=== PATIENT | male | born 1960 | race Caucasian/White ===

== ENCOUNTER 2017-08-05 05:55 | Observation (INO) | payer BC ==
[~2017-08-05] VITALS: Ht 175.3 cm; Wt 82.9 kg
[2017-08-05] MEDS ORDERED: BUPIVACAINE/PF 0.25% ONE (06:52)
[2017-08-05] MEDS ORDERED: EPINEPHRINE 1 MG/ML, 1ML ONE (06:53)
[2017-08-05] MEDS ORDERED: LIDOCAINE/PF 0.5% ,50ML ONE (06:53)
[2017-08-05] MEDS ORDERED: THROMBIN 5,000 UNIT VIAL TP ONE (06:53)
[2017-08-05] MEDS ORDERED: VANCOMYCIN 1,000 MG ONE (06:53)
[2017-08-05] MEDS ORDERED: OXYC20TA2 PO (06:57)
[2017-08-05] MEDS ORDERED: FLUT1AER INH (06:57)
[2017-08-05] MEDS ORDERED: LISI1TAB5 PO (06:57)
[2017-08-05] MEDS ORDERED: ALBU8.5H8 INH (06:57)
[2017-08-05] MEDS ORDERED: LACTATED RINGERS 1,000 ML IV SCH (06:57)
[2017-08-05 06:58] VITALS: BP 145/95
[2017-08-05] MEDS ORDERED: FENTANYL PF 250 MCG/5ML ONE (07:02)
[2017-08-05] MEDS ORDERED: MIDAZOLAM 1 MG/ML, 2ML ONE (07:02)
[2017-08-05] MEDS ORDERED: REMIFENTANIL 2 MG ONE (07:03)
[2017-08-05] MEDS ORDERED: ROCURONIUM 10 MG/ML,10ML ONE (07:04)
[2017-08-05] MEDS ORDERED: LIDOCAINE-MPF 2% ,5ML ONE (07:05)
[2017-08-05] MEDS ORDERED: PROPOFOL 10 MG/ML, 20ML ONE (07:05)
[2017-08-05] MEDS ORDERED: PHENYLEPHRINE 10 MG/ML ONE (07:06)
[2017-08-05] MEDS ORDERED: CEFAZOLIN 1,000 MG ONE ×2 (07:07)
[2017-08-05] MEDS ORDERED: SODIUM CHLORIDE 0.9% PF 10ML ONE (07:07)
[2017-08-05] MEDS ORDERED: LIDOCAINE 1%, 2ML ONE (07:09)
[2017-08-05] MEDS ORDERED: ONDANSETRON 2MG/ML, 2ML ONE ×2 (07:09)
[2017-08-05] MEDS ORDERED: DEXAMETHASONE 4 MG/ML, 1ML ONE ×2 (07:09)
[2017-08-05] MEDS ORDERED: LIDOCAINE 1%, 2ML SQ PRN (07:30)
[2017-08-05] MEDS ORDERED: KETAMINE 10 MG/ML, 20ML ONE (07:59)
[2017-08-05] MEDS ORDERED: HYDROmorphone 2 MG/ML, 1ML ONE ×3 (08:14→11:01)
[2017-08-05] MEDS ORDERED: DEXMEDETOMIDINE 200 MCG/2 ML ONE (08:16)
[2017-08-05] MEDS ORDERED: VANCOMYCIN 500 MG ONE (09:05)
[2017-08-05] MEDS ORDERED: VANCOMYCIN 500 MG IVPB ONE (09:08)
[2017-08-05] MEDS ORDERED: hydrALAzine 20 MG/ML, 1ML IV PRN (10:00)
[2017-08-05] MEDS ORDERED: PROMETHAZINE 12.5 MG SUPP PR PRN (10:00)
[2017-08-05] MEDS ORDERED: ALBUTEROL SULFATE 2.5 MG/3 ML NPPB PRN ×2 (10:00→13:00)
[2017-08-05] MEDS ORDERED: LABETALOL 5MG/ML, 20ML IV PRN (10:00)
[2017-08-05] MEDS ORDERED: ONDANSETRON 2MG/ML, 2ML IVPush PRN (10:00)
[2017-08-05] MEDS ORDERED: MEPERIDINE/PF 25MG/0.5ML IVPush PRN (10:00)
[2017-08-05] MEDS ORDERED: OXYcodone 5 MG/5 ML ORAL.SOL UDC PO PRN (10:00)
[2017-08-05] MEDS ORDERED: FENTANYL PF 100 MCG/2ML IV PRN (10:00)
[2017-08-05] MEDS ORDERED: DIAZEPAM 5 MG/ML, 2ML IVPush PRN ×2 (10:00)
[2017-08-05] MEDS: HYDROmorphone 1 MG/ML, 1ML IV PRN ×5 (10:21→11:47)
[2017-08-05] MEDS ORDERED: OXYcodone 5 MG/5 ML ORAL.SOL UDC ONE (11:01)
[2017-08-05] MEDS ORDERED: METHOCARBAMOL 750 MG TABLET ONE (11:18)
[2017-08-05] MEDS ORDERED: LORazepam 2 MG/ML, 1ML ONE (11:21)
[2017-08-05] MEDS ORDERED: METHOCARBAMOL 750 MG TABLET PO PRN ×2 (11:30→13:30)
[2017-08-05] MEDS ORDERED: LORazepam 2 MG/ML, 1ML IVPush PRN (11:30)
[2017-08-05 12:45] VITALS: BP 112/79
[2017-08-05] MEDS ORDERED: MAGNESIUM HYDROXIDE 8%, 30ML UDC PO PRN (13:30)
[2017-08-05] MEDS ORDERED: ONDANSETRON 2MG/ML, 2ML IV PRN (13:30)
[2017-08-05] MEDS ORDERED: PROMETHAZINE 25 MG/ML, 1ML IM PRN (13:30)
[2017-08-05] MEDS ORDERED: BISACODYL 10 MG SUPP PR PRN (13:30)
[2017-08-05] MEDS: OXYcodone IR 5MG TABLET PO PRN ×4 (14:34→23:17)
[2017-08-05] MEDS: D5%-0.9% NACL+KCL 20MEQ 1,000 ML IV SCH ×2 (14:34→23:30)
[2017-08-05] MEDS: CEFAZOLIN PMX 1GM/50ML 50 ML IVPB SCH ×2 (15:28→23:30)
[2017-08-05] MEDS: DEXAMETHASONE 4 MG/ML, 1ML IVPush SCH ×2 (15:33→22:41)
[2017-08-05] MEDS: GABAPENTIN 300 MG CAPSULE PO SCH ×2 (15:33→22:41)
[2017-08-05] MEDS ORDERED: METHOCARBAMOL 1,000 MG in DEXTROSE 5% 100 ML IV ONE (16:00)
[2017-08-05 20:17] VITALS: BP 122/66
[2017-08-05] MEDS: METHOCARBAMOL 750 MG in DEXTROSE 5% 100 ML IV SCH (21:11)
[2017-08-05] MEDS ORDERED: morphine SULFATE 10 MG/ML, 1ML IVPush ONE (23:30)
[2017-08-06 00:27] VITALS: BP 127/76
[2017-08-06] MEDS: OXYcodone IR 5MG TABLET PO PRN (04:34)
[2017-08-06] MEDS: METHOCARBAMOL 750 MG in DEXTROSE 5% 100 ML IV SCH (05:10)
[2017-08-06] MEDS: DEXAMETHASONE 4 MG/ML, 1ML IVPush SCH (06:17)
[2017-08-06] MEDS: GABAPENTIN 300 MG CAPSULE PO SCH (06:17)
[2017-08-06] MEDS: D5%-0.9% NACL+KCL 20MEQ 1,000 ML IV SCH (07:54)
[2017-08-06 08:28] VITALS: BP 149/83
[2017-08-06] MEDS ORDERED: CEPH-368 PO (08:38)
[2017-08-06] MEDS ORDERED: MORP30TA81 PO (08:41)
[2017-08-06] MEDS ORDERED: OXYC10TA6 PO (08:42)
[2017-08-06] MEDS ORDERED: FLUTICASONE/VILANTEROL 100-25MCG/INH INH SCH (09:00)
[2017-08-06] MEDS ORDERED: HYDROCHLOROTHIAZIDE 12.5 MG CAPSULE PO SCH (09:00)
[2017-08-06] MEDS ORDERED: CEPHALEXIN 500 MG CAPSULE PO ONE (09:00)
[2017-08-06] MEDS ORDERED: SENNA/DOCUSATE TABLET PO SCH (09:00)
[2017-08-06] MEDS ORDERED: LISINOPRIL 20 MG TABLET PO SCH (09:00)
[2017-08-07] MEDS ORDERED: METHOCARBAMOL 750 MG TABLET PO SCH (22:00)
== END 2017-08-06 09:15 | disposition home or self-care (01) ==
LOC: OUT 05:55 → 4NOR 12:44 → OUT 23:26 → 4NOR 23:27
PROVIDERS: ADMIT Orthopaedic Surgery Orthopaedic Surgery of the Spine; ATTEND Orthopaedic Surgery Orthopaedic Surgery of the Spine
DX: M48.061 Spinal stenosis, lumbar region without neurogenic claudication (principal); G89.29 Other chronic pain; I10 Essential (primary) hypertension; J44.9 Chronic obstructive pulmonary disease, unspecified
CPT/HCPCS: 63047; 63048; 72100; 96365; 96366; 96367; 96375; 96376; G0378; J0171; J0690; J1100; J1170; J2001; J2060; J2250; J2270; J2370; J2405; J2704; J2800; J3010; J3370; J3480; J3490; J7120